=== PATIENT | female | born 1940 | race Caucasian/White ===

== ENCOUNTER 2017-01-02 23:39 | Emergency (ER) | payer MEDICARE, BC ==
--- NOTE | ~2017-01-02 | CT17 ---
[facility] A Service of [facility] & [facility] RADIOLOGY TEXT RESULTS PATIENT: GAURANG SLIVA LOCATION: [facility] : 42 UNIT #: [id number] AGE: [address]: Felicity Velázquez MD SEX: F ORDER DR: [id number] [facility] [address] [place], [place] [address] [id number] E MR#: [id number] Acc #: [id number] NAME: GAURANG SILVA : 1940 SEX: F STUDY DATE/TIME: 01/03/2017 1:18 UNIT: [facility] ROOM: STUDY DESCRIPTION: CT Angio Head Attending Physician: Felicity Velázquez M.D. Ordering Physician: Felicity Velázquez M.D. Primary Care Physician: Bridget Delgadillo M.D. MEDICAL IMAGING REPORT This report is preliminary unless electronic signature is present EXAM CT angiogram of the head and neck. HISTORY Dizziness since 1400 yesterday. History of no pain and headache provided. Also history of blurred vision. TECHNIQUE CT angiography of the head and neck vessels performed during the intravenous administration of 100 mL of Isovue-370. Imaging acquired in the axial plane and followed by multiple reconstructed and reformatted images for the purpose of 3-D CT angiography of the head and neck vessels. This CT exam was performed with one or more of the following radiation dose reduction techniques: automatic exposure control, adjustment of mA and/or kV according to patient size, and iterative reconstruction. Head CT comparison 01/03/2017 1:10 a.m. Preliminary wet reading provided overnight by Dr. Yeung at 2:[address] ANGIOGRAM NECK: The aortic arch branch pattern is normal. 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 Right carotid system shows mild plaque at the bifurcation with 0% stenosis by NASCET criteria. The right carotid siphon is widely patent. Assessment left carotid system shows mild plaque at the bifurcation but 0% stenosis by NASCET criteria and the left carotid siphon is widely patent. Right vertebral artery is patent in the neck and appears to terminate largely in a PICA vessel intracranially. Left vertebral artery is patent in the neck and intracranially supplying the basilar. It is the dominant STS. [facility] A Service of [facility] RADIOLOGY TEXT RESULTS PATIENT: GAURANG SILVA LOCATION: [facility] : 42 UNIT #: [id number] AGE: [address]: Felicity Velázquez MD SEX: F ORDER DR: vessel. Evaluation of the intracranial circulation shows presence of an anterior communicating artery. The right A1 vessel is mildly hypoplastic. There is no intracranial vascular cutoff. Dural venous sinuses are patent. There is a small posterior communicator on the right. No definite posterior communicator on the left. The distal right vertebral artery is quite hypoplastic after the PICA origin. No intracranial aneurysm is suspected allowing for the technical limitation of CT angiography at this institution for evaluation for aneurysm at the level of the skull due to adjacent bone. There are degenerative changes in the cervical spine. The thyroid gland is atrophic. IMPRESSION 1. By NASCET criteria, 0% stenosis at either carotid bifurcation. Both vertebral arteries are patent with the left being dominant and right largely terminating in a PICA vessel. 2. No intracranial vascular cutoff. Intracranial vascular variations are discussed above. 3. Atrophy of the thyroid gland. Please correlate clinically. STAT * RESULT Dictated by... Magaly Duval M.D. THIS IS AN ELECTRONICALLY VERIFIED REPORT Magaly Duval M.D. at 01/03/2017 5:26 PM RADHIKA/kerline TD: 01/03/2017 11:24 JOB #: [id number] MEDICAL IMAGING REPORT Page 1 of 1 COPY
--- NOTE | ~2017-01-02 | EKG ---
PATIENT: GAURANG SILVA UNIT #: [id number] Ventricular Rate: 65 BPM Atrial Rate: 65 BPM P-R Interval: 144 ms QRS Duration: 80 ms Q-T Interval: 432 ms QTC Calculation(Bezet): 449 ms P Garland: 24 degrees Calculated R Garland: 17 degrees Calculated T Garland: 57 degrees Diagnosis Line: Normal sinus rhythm Diagnosis Line: Low voltage QRS Diagnosis Line: Otherwise normal ECG Diagnosis Line: No previous ECGs available Diagnosis Line: Confirmed by ALLEGRA GOMES MD ([id number]) on 01/04/2017 Diagnosis Line: 9:50:02 AM INTERPRETING MD: ELISEO LANGSTON
--- NOTE | ~2017-01-02 | CT71 ---
[facility] A Service of [facility] RADIOLOGY TEXT RESULTS PATIENT: GAURANG SILVA LOCATION: [facility] : 44 UNIT #: [id number] AGE: [address]: Felicity Velázquez MD SEX: F ORDER DR: [id number] [facility] [address] [place], [place] [address] [id number] E MR#: [id number] Acc #: [id number] NAME: GAURANG SILVA : 1940 SEX: F STUDY DATE/TIME: 01/03/2017 1:10 UNIT: [facility] ROOM: STUDY DESCRIPTION: CT Head Wo Contrast Attending Physician: Felicity Velázquez M.D. Ordering Physician: Felicity Velázquez M.D. Primary Care Physician: Bridget Delgadillo M.D. MEDICAL IMAGING REPORT This report is preliminary unless electronic signature is present EXAM Noncontrast head CT HISTORY Dizziness since 1400 hours yesterday, headaches, blurred vision. TECHNIQUE This CT examination was performed with one or more of the following radiation dose reduction techniques: automatic exposure control, adjustment of mA and/or kV according to patient size, and iterative reconstruction. FINDINGS Axial noncontrast imaging of the brain demonstrates the brain parenchyma to be normal. No evidence of mass, mass effect or midline shift. No hemorrhage or abnormal extraaxial fluid collections. Ventricles, sulci and basilar cisterns unremarkable for age. Bony calvaria, skull base, mastoids and sinuses unremarkable. IMPRESSION Normal noncontrast head CT for age. Dictated by... Alie Yeung M.D. THIS IS AN ELECTRONICALLY VERIFIED REPORT Alie Yeung M.D. at 01/04/2017 10:34 PM HALIE/duane TD: 01/03/2017 07:09 [facility] A Service of [facility] RADIOLOGY TEXT RESULTS PATIENT: GAURANG SILVA LOCATION: [facility] : 44 UNIT #: [id number] AGE: [address]: Felicity Velázquez MD SEX: F ORDER DR: JOB #: [id number] MEDICAL IMAGING REPORT Page 1 of 1 COPY
--- NOTE | ~2017-01-02 | CT23 ---
[facility] A Service of [place] & [facility] RADIOLOGY TEXT RESULTS PATIENT: GAURANG SILVA LOCATION: [facility] : 42 UNIT #: [id number] AGE: [address]: Felicity Velázquez MD SEX: F ORDER DR: [id number] [facility] [address] [place], [place] [address] [id number] E MR#: [id number] Acc #: [id number] NAME: GAURANG SILVA : 1940 SEX: F STUDY DATE/TIME: 01/03/2017 1:18 UNIT: [facility] ROOM: STUDY DESCRIPTION: CT Angio Neck Attending Physician: Felicity Velázquez M.D. Ordering Physician: Felicity Velázquez M.D. Primary Care Physician: Bridget Delgdaillo M.D. MEDICAL IMAGING REPORT This report is preliminary unless electronic signature is present EXAM CT angiogram of the neck. HISTORY Dizziness since 1400 yesterday. History of no pain and headache provided. Also history of blurred vision. FINDINGS Please see CT angio head for results. Dictated by... Magaly Duval M.D. THIS IS AN ELECTRONICALLY VERIFIED REPORT Magaly Duval M.D. at 01/03/2017 5:26 PM RADHIKA/kerline TD: 01/03/2017 11:26 JOB #: [id number] MEDICAL IMAGING REPORT Page 1 of 1 COPY
[2017-01-02 21:03] LABS: URINE SOURCE CLEAN CATCH
[2017-01-02 21:25] LABS: URBCS1 AUWI 0-2 /[HPF] (0-2); URINE APPEARANCE CLEAR; URINE BACTERIA AUWI NEG (NEGATIVE); URINE BILIRUBIN NEG (NEG); URINE BLOOD TRACE (NEG); URINE COLOR YELLOW; URINE GLUCOSE NEG (NEG); URINE KETONE NEG (NEG); URINE LEUKOCYTE ESTERASE NEG (NEG); URINE NITRATE NEG (NEG); URINE PROTEIN NEG (NEG); URINE SPECIFIC GRAVITY 1.004 (1.003-1.035); URINE SQUAMOUS EPITHELIAL CELL NONE SEEN /[HPF]; URINE UROBILINOGEN 0.2 MG/DL (NEG); UWBCS1 AUWI 0-2 (0-5)
[2017-01-02 21:26] LABS: CULTURE INDICATED? NO
[~2017-01-02 23:39] MED LIST: ASPIRIN PO; LASIX PO; MAVIK4 MG PO; SYNTHROID PO; [UNRECOGNIZED DRUG - REMARK]
[2017-01-03 00:01] LABS: POC - TROPONIN <0.05 ng/mL (<=0.05)
[2017-01-03 00:15] LABS: BASOPHIL# 0.1 X10e3 (0-0.3); DIFF IND NO; EOSINOPHIL# 0.2 X10e3 (0-0.7); EOSINOPHIL% 2.9 % (0.0-7.0); HEMATOCRIT 42.5 % (35.0-45.0); HEMOGLOBIN 14.4 gm/dL (12.0-16.0); LYMPHOCYTE# 2.7 X10e3 (1.0-3.5); LYMPHOCYTE% 42.5 % (17.0-45.0); MEAN CELL VOLUME 84.3 FL (83-96); MEAN CORPUSCULAR HEMOGLOBIN 28.6 PG (28-34); MEAN PLATELET VOLUME 6.9 FL (6.5-11.5); MONOCYTE# 0.5 X10e3 (0-1.0); MONOCYTE% 7.9 % (3.0-12.0); NEUTROPHIL# 2.9 X10e3 (1.5-7.1); NEUTROPHIL% 45.7 % (40-75); PLATELET COUNT 201 X10e3 (140-420); RED BLOOD COUNT 5.03 X10e (3.90-5.30); RED CELL DISTRIBUTION WIDTH 13.2 % (11.0-15.5); WHITE BLOOD COUNT 6.4 X10e3 (4.0-10.5)
[2017-01-03 00:19] LABS: ALBUMIN SERUM 4.7 g/dL (3.5-5.0); BILIRUBIN, DIRECT 0.1 mg/dL (0.0-0.2); BILIRUBIN,INDIRECT 0.7 mg/dL (0.0-0.9); BILIRUBIN,TOTAL 0.8 mg/dL (0.2-2.0); BUN/CREATININE RATIO 18.75; CALCIUM SERUM 9.7 mg/dL (8.4-10.2); CREATININE SERUM 0.8 mg/dL (0.6-1.4); GLOM FILT RATE Estimated 72.7 mL/min (>60); POTASSIUM 3.3 mmol/L (3.5-5.1); PROTEIN TOTAL SERUM 7.6 g/dL (6.0-8.3)
[2017-01-03 02:07] LABS: POC - CKMB <1.0 ng/mL (0.0-7.9); POC - TROPONIN <0.05 ng/mL (<=0.05)
== END 2017-01-03 04:56 | disposition home or self-care (01) ==
LOC: CED 23:39
PROVIDERS: Emergency Medicine; Student in an Organized Health Care Education/Training Program
DX: R55 Syncope and collapse (principal); I10 Essential (primary) hypertension; R53.83 Other fatigue; Z90.710 Acquired absence of both cervix and uterus; Z98.51 Tubal ligation status; Z79.899 Other long term (current) drug therapy
CPT/HCPCS: 36415; 70450; 70496; 70498; 80048; 80076; 81003; 82553; 82947; 84443; 84484; 85025; 93005; 96360; 99284; Q9967

== ENCOUNTER → 2017-02-09 | Outpatient (CLI) | payer MEDICARE, BC ==
--- NOTE | ~2017-02-09 | CR115 ---
[facility] A Service of [facility] & [facility] RADIOLOGY TEXT RESULTS PATIENT: GAURANG SILVA LOCATION: [facility] : 42 UNIT #: [id number] AGE: [address]: Linda Ratliff MD SEX: F ORDER DR: [id number] [facility] [address] [place], [place] [address] [id number] O MR#: [id number] Acc #: [id number] NAME: GAURANG SILVA : 1940 SEX: F STUDY DATE/TIME: 02/09/2017 18:25 UNIT: [facility] ROOM: STUDY DESCRIPTION: CR Finger 2 View 5Th Rt Attending Physician: Linda Ratliff M.D. Ordering Physician: Linda Ratliff M.D. Primary Care Physician: Bridget Delgadillo M.D. MEDICAL IMAGING REPORT This report is preliminary unless electronic signature is present EXAM Left fifth finger HISTORY Pain and swelling for 3 months. FINDINGS Three views are submitted. The examination shows an avulsion fracture from the dorsal aspect of the proximal articular surface of the distal phalanx. The joint space is narrowed as well. There is overlying soft tissue swelling. CONCLUSION Avulsion fracture from the dorsal aspect of the base of the distal phalanx of digit 5 of the right hand. Dictated by... Félix Bey M.D. THIS IS AN ELECTRONICALLY VERIFIED REPORT Félix Bey M.D. at 02/13/2017 5:11 PM JOE/duane TD: 02/10/2017 06:55 JOB #: [id number] MEDICAL IMAGING REPORT Page 1 of 1 COPY
== END | disposition home or self-care (01) ==
LOC: CRAD 18:06
DX: M79.645 Pain in left finger(s) (principal); M79.89 Other specified soft tissue disorders; S62.637A Displaced fracture of distal phalanx of left little finger, initial encounter for closed fracture
CPT/HCPCS: 73140